=== PATIENT | male | born 1970 | race American Indian/Alaskan Native ===

== ENCOUNTER 2021-04-11 06:11 | Day surgery (SDC) | payer BC ==
[2021-04-11] MEDS ORDERED: SODIUM CHLORIDE 0.9% 1000 ML 1,000 ML ONE (06:51)
[2021-04-11] MEDS ORDERED: ONDANSETRON 4 MG/2 ML INJ ONE (07:33)
[2021-04-11] MEDS ORDERED: fentaNYL 100 MCG/2 ML INJ ONE (07:33)
[2021-04-11] MEDS ORDERED: LIDOCAINE MPF (2%) 20 MG/1 ML VIAL 5 ML ONE (07:33)
[2021-04-11] MEDS ORDERED: propofoL 200 MG/20 ML VIAL IV ONE ×3 (07:34→08:16)
--- NOTE | 2021-04-11 07:49 | Anesthesia Consultation ---
Anesthesia Consult and Med Hx Date of service: 04/11/21 - Airway Anesthetic Teeth Evaluation: Good ROM Head & Neck: Adequate Mental/Hyoid Distance: Adequate Mallampati Class: Class II Intubation Access Assessment: Probably Good - Pre-Operative Health Status ASA Pre-Surgery Classification: ASA2 Proposed Anesthetic Plan: MAC - Pulmonary Hx Smoking: No Hx Respiratory Symptoms: No - Cardiovascular System Hx Hypertension: Yes (took anithypertension) Hx Heart Attack/AMI: No - Central Nervous System CVA: No - Endocrine Hx Renal Disease: No Hx Liver Disease: No Hx Non-Insulin Dependent Diabetes: Yes Hx Thyroid Disease: No - Hematic Hx Anemia: Yes (w/ melena) - Additional Comments Anesthesia Medical History Comments: No hx anesthetic complications.
--- NOTE | 2021-04-11 07:50 | Anesthesia Day of Surgery ---
Anesthesia Day of Surgery - Day of Surgery Patient Examined: Yes Patient H&P Reviewed: Yes Patient is NPO: Yes
[2021-04-11] MEDS ORDERED: SODIUM CHLORIDE 0.9% 1000 ML 1,000 ML IV SCH (08:00)
[2021-04-11] MEDS ORDERED: PHENYLEPHRINE/NS 1,000 MCG/10 ML SYRINGE (OR USE) IV ONE (08:28)
--- NOTE | 2021-04-11 09:31 | Procedure Note ---
Date of procedure: 04/11/21 Pre-op diagnosis: 1) Anemia 2) Melena Post-op diagnosis: same Procedure: 1) Colonoscopy 2) EGD Description of procedure: Pt was placed left side down on the GI lab stretcher. Pt was administered MAC anesthesia. Bite block was placed between pt's incisor s. Scope was introduced into the oropharynx and the esophagus entered under direct vision. The esophagus, stomach and 1st and 2nd portions of the duodenum were examined. Proximal stomach and fundus were examined. No source of the pt's anemia or melena was identified. In short, the exam was unremarkable. Insufflated air was aspirated and the scope was withdrawn with repeat exam of the esophagus being unremarkable. Pt was repositioned for the colonoscopy. Scope was inserted into the pt's rectum. Scope was advanced with visualization of the colonic lumen. Prep was adequate. Once the cecum was identified, the scope was slowly withdrawn with careful circumferential visualization of the colonic mucosa. No polyps, tumors, AVM's, ulcerations or diverticula were noted. Retroflexed view of the distal rectum was also unremarkable. Insufflated air was aspirated and the scope was withdrawn. Pt tolerated both procedures well. Pt was taken to the GI PACU in stable condition. Anesthesia: MAC Surgeon: NANDINI ARAUZ Estimated blood loss: none Pathology: none Condition: stable Disposition: same day
[2021-04-11 09:37] VITALS: BP 137/79
--- NOTE | 2021-04-11 10:19 | Post Anesthesia Evaluation ---
- Post Anesthesia Evaluation Patient Participated: Yes Airway Patent: Yes Stable Respiratory Function: Yes Nausea/Vomiting: No Temp > 96.8F: Yes Pain Manageable: Yes Adequeate Hydration: Yes Anesthesia Complications: No
== END 2021-04-11 09:49 | disposition home or self-care (01) ==
LOC: GIO 06:11
PROVIDERS: ATTEND Surgery
DX: D64.9 Anemia, unspecified (principal); K92.1 Melena; K63.89 Other specified diseases of intestine; K31.89 Other diseases of stomach and duodenum; I10 Essential (primary) hypertension; E11.9 Type 2 diabetes mellitus without complications; Z79.899 Other long term (current) drug therapy; Z98.890 Other specified postprocedural states
CPT/HCPCS: 43235; 45378; 82962; J2370; J2405; J2704; J3010; J7030